=== PATIENT | female | born 1965 | race African-American/Black ===

== ENCOUNTER 2021-07-17 09:49 | Day surgery (SDC) | payer OTHER, SELFPAY ==
[~2021-07-17] VITALS: Ht 162.6 cm; Wt 73.5 kg
[2021-07-17] MEDS ORDERED: fentaNYL citrate 0.05 MG/ML VIAL ONE (10:38)
[2021-07-17] MEDS ORDERED: LIDOCAINE 2% 100 MG/5 ML UJET TP ONE (10:39)
[2021-07-17] MEDS ORDERED: fentaNYL citrate 0.05 MG/ML VIAL IVP ONE (12:55)
== END 2021-07-17 11:50 | disposition home or self-care (01) ==
LOC: MDS 09:49 → MMU 09:49 → MDS 11:50
PROVIDERS: ATTEND Internal Medicine Gastroenterology
DX: Z12.11 Encounter for screening for malignant neoplasm of colon (principal); K57.30 Diverticulosis of large intestine without perforation or abscess without bleeding; I10 Essential (primary) hypertension; F17.210 Nicotine dependence, cigarettes, uncomplicated; Z80.0 Family history of malignant neoplasm of digestive organs; Z90.710 Acquired absence of both cervix and uterus; Z20.822 Contact with and (suspected) exposure to COVID-19
CPT/HCPCS: 45378; 87426; J3010